=== PATIENT | female | born 2000 | race Caucasian/White ===

== ENCOUNTER → 2019-01-18 | Outpatient (CLI) | payer BC ==
--- NOTE | 2019-01-18 17:25 | Diagnostic Imaging Report ---
PROCEDURE: US Non-ob pelvis comp/trans. TECHNIQUE: Multiple realtime grayscale images were obtained of the pelvis in various projections endovaginally. Transabdominal imaging was also performed. INDICATION: Right lower quadrant pain. FINDINGS: The uterus is normal in size measuring 8.6 x 6.7 x 3.5 cm. Endometrial thickness is normal at 2 mm with no fluid evident within the endometrial canal. The right ovary measures 2.8 x 2.0 x 1.6 cm. Left ovary measures 4.2 x 2.1 x 1.6 cm. Both ovaries demonstrate small follicles. There is no adnexal mass. Both ovaries demonstrate appropriate Doppler flow. No free fluid is evident. IMPRESSION: 1. Unremarkable pelvic sonogram. Dictated by: Dictated on workstation # [id number]
== END ==
LOC: RAD 11:47
PROVIDERS: ATTEND Nurse Practitioner Family
DX: R10.31 Right lower quadrant pain (principal)
CPT/HCPCS: 76830; 76856